=== PATIENT | male | born 1950 | race Hispanic/Latino ===

== ENCOUNTER 2021-01-18 07:35 | Day surgery (SDC) | payer OTHER ==
[2021-01-15 10:34] LABS: BASOPHILS % (AUTO) 0.5 % (0.0-5.0); EOSINOPHILS % (AUTO) 4.9 % (0.0-8.0); HEMATOCRIT 36.1 % (42-54); MEAN CORPUSCULAR HEMOGLOBIN 24.1 pg (27.0-33.0); MEAN CORPUSCULAR HGB CONC 30.2 g/dL (32.0-36.0); MEAN CORPUSCULAR VOLUME 79.9 fL (79-99); MONOCYTES % (AUTO) 7.4 % (3.0-13.0); NEUTROPHILS % (AUTO) 68.9 % (40.0-77.0); PLATELET COUNT (AUTO) 397 K/uL (130-400); RED BLOOD CELL COUNT(AUTO) 4.52 MIL/uL (4.50-6.20); WHITE BLOOD COUNT (AUTO) 11.3 K/uL (4.8-10.8)
[2021-01-15 10:43] LABS: CREATININE 1.3 mg/dL (0.5-1.5); INR 1.01 (0.85-1.15)
[2021-01-15 10:44] LABS: PARTIAL THROMBOPLASTIN TIME 28.2 SEC (26.3-35.5)
[2021-01-18] VITALS (12 sets, daily range): BP systolic 150–177; BP diastolic 72–92
[~2021-01-18] VITALS: Ht 165.1 cm; Wt 118.1 kg
[2021-01-18] MEDS ORDERED: 0.9%NACL 1000ML 1,000 ML IV ONE (08:12)
[2021-01-18] MEDS: CEFAZOLIN SODIUM 1 GM VIAL IVP SCH ×2 (08:30→14:45)
[2021-01-18] MEDS ORDERED: INSU300I3 SQ (12:24)
[2021-01-18] MEDS ORDERED: EMPA1TAB19 PO (12:24)
[2021-01-18] MEDS ORDERED: ATOR-2 PO (12:24)
[2021-01-18] MEDS ORDERED: EZET10TA13 PO (12:24)
[2021-01-18] MEDS ORDERED: INSU100I15 SQ (12:24)
[2021-01-18] MEDS ORDERED: FURO20TA4 PO (12:24)
[2021-01-18] MEDS ORDERED: ASPI-1012 PO (12:24)
[2021-01-18] MEDS ORDERED: CLOP75TA14 PO (12:24)
[2021-01-18] MEDS ORDERED: METO25TA6 PO (12:24)
[2021-01-18] MEDS ORDERED: SUCCINYLCHOLINE CHLORIDE 20 MG/ML 10 ML VIAL ONE (13:26)
[2021-01-18] MEDS ORDERED: ONDANSETRON 4MG INJ ONE (13:26)
[2021-01-18] MEDS ORDERED: GLYCOPYRROLATE 1 MG/5 ML SYRINGE ONE (13:26)
[2021-01-18] MEDS ORDERED: MIDAZOLAM HCL 1 MG/ML 2ML VIAL ONE (13:26)
[2021-01-18] MEDS ORDERED: PROPOFOL 10 MG/ML 20ML VIAL IV ONE (13:26)
[2021-01-18] MEDS ORDERED: LIDOCAINE PF 100MG/5ML (2%) SYRINGE 5ML ONE (13:26)
[2021-01-18] MEDS ORDERED: ROCURONIUM 10MG/1ML SYR 10 MG/ML ML ONE (13:26)
[2021-01-18] MEDS ORDERED: DEXAMETHASONE SOD PHOSPHATE 10MG/ML 1ML VIAL ONE (13:26)
[2021-01-18] MEDS ORDERED: LIDOCAINE 1%-EPI 1:100,000 20 ML VIAL IJ SCH (13:30)
[2021-01-18] MEDS ORDERED: FENTANYL CITRATE PF 50 MCG/1 ML 2ML VIAL ONE ×2 (13:35→15:00)
[2021-01-18] MEDS ORDERED: BACITRACIN 28.4 GM OINT TP ONE (14:53)
[2021-01-18] MEDS ORDERED: BACITRACIN 3.5 GM TUBE OP SCH (16:00)
== END 2021-01-18 17:10 | disposition home or self-care (01) ==
LOC: DAH 07:35
PROVIDERS: ATTEND Otolaryngology Plastic Surgery within the Head & Neck
DX: L57.8 Other skin changes due to chronic exposure to nonionizing radiation (principal); Z20.822 Contact with and (suspected) exposure to COVID-19; E66.01 Morbid (severe) obesity due to excess calories; I10 Essential (primary) hypertension; E11.9 Type 2 diabetes mellitus without complications; E78.5 Hyperlipidemia, unspecified; Z79.82 Long term (current) use of aspirin; Z79.01 Long term (current) use of anticoagulants; Z79.899 Other long term (current) drug therapy
CPT/HCPCS: 11442; 36415; 71045; 80048; 82948 ×3; 85025; 85610; 85730; 87635; 93005; A4213; A4215; A4221; A4222; A4223; A4606; A4663; A6260; C9803; J0330; J0690 ×2; J1100; J2001; J2250; J2405; J2704; J3010 ×2; J3490 ×2; J7030